=== PATIENT | female | born 1950 | race Caucasian/White ===

== ENCOUNTER → 2018-10-21 | Outpatient (CLI) | payer MEDICARE, OTHER ==
--- NOTE | 2018-10-22 19:54 | CT ---
EXAMINATION TYPE: CT abdomen pelvis wo con DATE OF EXAM: 10/21/2018 HISTORY: abdominal pain. hx of ulcers. CT DLP: 669 mGycm. Automated Exposure Control for Dose Reduction was Utilized. TECHNIQUE: CT scan of the abdomen and pelvis is performed without oral or IV contrast. COMPARISON: NONE FINDINGS: Within the limitations of a non-contrast study, the following observations are made. LUNG BASES: No significant abnormality is appreciated. LIVER/GB: Contracted gallbladder is present. PANCREAS: No significant abnormality is seen. SPLEEN: No significant abnormality is seen. ADRENALS: No significant abnormality is seen. KIDNEYS: No renal stones or hydronephrosis. BOWEL: There is debris filled stomach suggesting recent meal ingestion. There is no cysts which is sm aller large bowel dilatation. GENITAL ORGANS: Uterus is surgically absent or markedly atrophic. There are scattered pelvic phleboli ths, left more numerous than right. LYMPH NODES: No greater than 1cm abdominal or pelvic lymph nodes are appreciated. OSSEOUS STRUCTURES: There is facet arthropathy in the lower lumbar spine. OTHER: There is moderate-sized fat-containing paraumbilical hernia. IMPRESSION: No suspicious acute finding is seen to account for patient's symptoms.
== END ==
LOC: RADCTMAIN 15:29
PROVIDERS: ATTEND Family Medicine
DX: R10.9 Unspecified abdominal pain (principal)
CPT/HCPCS: 74176

== ENCOUNTER → 2021-12-01 | Outpatient (CLI) | payer MEDICARE ==
--- NOTE | 2021-12-01 11:57 | MR ---
EXAMINATION TYPE: MR brain wo con DATE OF EXAM: 12/01/2021 COMPARISON: NONE HISTORY: Headaches, lightheaded. TECHNIQUE: Multiplanar, multisequence imaging of the brain and brainstem is performed without IV cont rast. Exam performed without IV contrast as patient refused contrast as ordered. FINDINGS: Diffusion weighted images demonstrate no evidence of a recent infarct or other diffusion abnormality. There is no extraaxial fluid collection or significant white matter signal abnormality. Mild ventricu lar and sulcal prominence. Midline structures demonstrate empty sella morphology. The craniocervical junction appears within no rmal limits. Normal vascular flow voids are present. The visualized sinuses are clear and the globes are intact. No suspicious fluid signal bilateral mastoid air cells. IMPRESSION: Mild diffuse age-related cerebral atrophy otherwise unremarkable study.
== END | disposition home or self-care (01) ==
LOC: RADMRIMAIN 10:21
PROVIDERS: ATTEND Family Medicine
DX: G31.9 Degenerative disease of nervous system, unspecified (principal)
CPT/HCPCS: 70551